=== PATIENT | female | born 1990 | race Caucasian/White ===

== ENCOUNTER 2018-05-07 05:51 | Day surgery (SDC) | payer BC ==
--- NOTE | 2018-05-06 18:36 | Pre-Procedure Note/Attestation ---
Pre-Procedure Note/Attestation Complete Prior to Procedure Planned Procedure: bilateral Procedure Narrative: Tonsillectomy Indirect nasopharyngeal mirror exam Possible adenoidectomy Indications for Procedure Pre-Operative Diagnosis: Chronic recurrent tonsillitis Poss. hypertrophied adenoids. Attestation I attest that I discussed the nature of the procedure; its benefits; risks and complications; and alternatives (and the risks and benefits of such alternatives ), prior to the procedure, with the patient (or the patient's legal clearance representative). I attest that, if there was a reasonable possibility of needing a blood transfusion, the patient (or the patient's legal clearance representative) was given the [facility] standardized written summary, pursuant to the [place] Blood Safety Act ([place] Health and Safety Code # 1645, as amended). I attest that I re-evaluated the patient just prior to the surgery and that there has been no change in the patient's H&P, job # [id number]: Bentley Medina MD May 06, 2018 18:36
--- NOTE | 2018-05-06 18:38 | Brief Operative Note ---
Immediate Post Operative Note Operative Note Chief Complaint: Revurrent tonsillitis Pre-op Diagnosis: Chronic recurrent tonsillitis Poss. hypertrophied adenoids. Procedure: Bilateral tonsillectomy Indirect mirror exam posterior nasopharynx while asleep Post-op Diagnosis: same Post-op Diagnosis: same as pre-op Surgeon: Bentley Medina Loading Unit Operator Crimping: none Additional Surgeons: none Anesthesiologist: Radha STACY Anesthesia: general Specimen: yes Complications: none Condition: stable Fluids: D5LR 500 cc Estimated Blood Loss: volume - 10 cc Drains: none Packing: none Implant(s) used?: No Bentley Medina MD May 06, 2018 18:38
--- NOTE | 2018-05-06 18:39 | Discharge Instructions ---
Discharge Instructions Discharge Instructions Follow up with: Dr. Medina 05/21/18 at 11:15AM Diet: clear liquid, other Resume Normal Activity?: No Activity: light activity Pneumonia Vaccine: pt refused vaccine Influenza Vaccine (May to Oct): pt refused vaccine Return to Work/School on: May 21, 2018 For Surgical Patients May shower: No Contact your physician for: bleeding, pain, tenderness, redness, swelling, yellowish discharge in the op. site For Congestive Heart Failure Reminder Report to your physician any weight gain of 5 pounds or more in one week. Bentley Medina MD May 06, 2018 18:39
--- NOTE | 2018-05-06 20:15 | Pre-op HX & Phy Repo 2 SIG ---
DATE OF ADMISSION: 05/07/2018 INDICATION FOR SURGERY: The patient is a 27-year-old female who has 6 tonsil infections a year for the last 3 years. She had had 2 to 3 a year as a child and was supposed to have her tonsils out at 10 years old, but did not. PAST MEDICAL HISTORY: Otherwise, unremarkable for alcohol, drugs or smoking. She is single. No children. Works as an actor. PAST SURGICAL HISTORY: Breast implants and wisdom teeth. ALLERGIES: No known drug allergies. PHYSICAL EXAMINATION: GENERAL: She is 5 feet 4 inches, 120 pounds. VITAL SIGNS: 120/80 for blood pressure, temperature 98.6 degrees, pulse 72, and respiratory rate 14. HEENT: Head is normocephalic. Lips, neck, and nose all normal. Eyes, PERRLA, EOMI. Cranial nerves II through XII grossly normal. Tonsils, 2.5 plus and cryptic bilaterally. CHEST: Clear to auscultation and percussion. ABDOMEN: Soft and nontender. Normoactive bowel sounds. HEART: Normal S1 and S2. No S3 or S4. No murmur, bruit, gallop, or rub. Please note, I did not do a breast exam nor genitourinary exam, it is not indicated for this surgery and she is followed up regularly by her TORCH STRAIGHTENER. ASSESSMENT: Recurrent tonsillitis, six times a year, which is indication for removal of the tonsils. PLAN: Bilateral tonsillectomy, possible adenoidectomy. Bentley Medina M.D. DR: ESTEBAN JOB#: [id number] CC: BETO
[~2018-05-07] VITALS: Ht 162.6 cm; Wt 54.4 kg
[2018-05-07] VITALS (9 sets, daily range): BP systolic 95–104; BP diastolic 44–64
[2018-05-07] MEDS ORDERED: NKM (06:35)
[2018-05-07] MEDS ORDERED: ceFAZolin sod 1 GM in D5W 55 ML IVPB ONE (07:00)
[2018-05-07] MEDS ORDERED: fentaNYL 100 mcg/2 mL IV ONE (07:17)
[2018-05-07] MEDS ORDERED: EPINEPHrine 1mg/1ml Amp ONE (07:18)
[2018-05-07] MEDS ORDERED: Thrombin 5000 units TOPIC ONE (07:19)
[2018-05-07] MEDS ORDERED: Lidocaine 1% 10mg/ml/Epi 0.005mg/ml 30ml vial INJ ONE (07:19)
[2018-05-07] MEDS ORDERED: Dyna-Hex 2% Top Sol 2oz TOPIC ONE (07:19)
[2018-05-07] MEDS ORDERED: Bupivacaine 0.5% Inj 30 ml vial INJ ONE (07:19)
[2018-05-07] MEDS ORDERED: Succinylcholine 20mg/ml 10ml vial ONE (07:21)
[2018-05-07] MEDS ORDERED: LR 1000ml ONE (07:30)
[2018-05-07] MEDS ORDERED: NS Irrig 1000ml ONE (07:30)
[2018-05-07] MEDS ORDERED: Sterile Water Irrig 1000ml IRRIG ONE (07:30)
[2018-05-07] MEDS ORDERED: Dexamethasone 4mg/ml vial IVP SCH (07:45)
[2018-05-07] MEDS ORDERED: Dexamethasone 4mg/ml vial ONE (07:49)
[2018-05-07] MEDS ORDERED: Lidocaine 1% MPF 10mg/ml 5ml ONE (07:49)
[2018-05-07] MEDS ORDERED: Metoclopramide 10mg/2ml Inj ONE (07:49)
[2018-05-07] MEDS ORDERED: Propofol 200mg/20ml IV ONE (07:49)
[2018-05-07] MEDS ORDERED: ceFAZolin sod 1 GM in D5W 55 ML IV ONE (08:15)
--- NOTE | 2018-05-07 08:37 | Immediate Post-Op Evaluation ---
Immediate Post-Op Evalulation Immediate Post-Op Evalulation Procedure: tonsillectomy bilateral Date of Evaluation: May 07, 2018 Time of Evaluation: 08:36 IV Fluids: 500 Blood Pressure Systolic: 102 Blood Pressure Diastolic: 50 Pulse Rate: 74 Respiratory Rate: 14 O2 Sat by Pulse Oximetry: 100 Temperature (Fahrenheit): 97.4 Pain Score (1-10): 0 Nausea: No Vomiting: No Complications none Patient Status: awake, reacts, patent Hydration Status: adequate Drug: ancef Given Within 1 Hr of Incision: Yes Time Given: 07:35 Radha Montemayor CRNA May 07, 2018 08:37
--- NOTE | 2018-05-07 08:38 | Anethesia Preoperative Eval ---
Anesthesia Pre-op PMH/ROS General Date of Evaluation: May 07, 2018 Time of Evaluation: 07:30 Anesthesiologist: genevieve ASA Score: ASA 2 Mallampati Score Class I : Soft palate, uvula, fauces, pillars visible Class II: Soft palate, uvula, fauces visible Class III: Soft palate, base of uvula visible Class IV: Only hard plate visible Mallampati Classification: Class I Surgeon: grabiel Diagnosis: choronic sinusitis Surgical Procedure: Tonsillectomy B Anesthesia History: none Social History: smoking, current smoker Family History: no anesthesia problems Allergies: Coded Allergies: No Known Allergies (Unverified , 05/06/18) Medications: see eMAR Past Medical History Cardiovascular: Denies: HTN, CAD, LA, valve dz, arrhythmia, other Pulmonary: Reports: other - smoking; Denies: asthma, COPD, BERTO Gastrointestinal/Genitourinary: Denies: GERD, CRI, ESRD, other Neurologic/Psychiatric: Denies: dementia, CVA, depression/anxiety, TIA, other Endocrine: Denies: DM, hypothyroidism, steroids, other HEENT: Denies: cataract (L), cataract (R), glaucoma, NONDALTON (L), NONDALTON (R), other Hematology/Immune: Denies: anemia, DVT, bleeding disorder, other Musculoskeletal/Integumentary: Denies: OA, RA, DJD, DDD, edema, other PSxH Narrative: none Anesthesia Pre-op Phys. Exam Physician Exam Last Vital Signs Date Time Temp Pulse Resp B/P (MAP) Pulse Ox O2 Delivery O2 Flow Rate FiO2 05/07/18 06:41 97.9 51 18 103/64 (77) 98 97.9 05/07/18 06:35 Room Air Constitutional: NAD Neurologic: CN 2-12 intact Cardiovascular: RRR Respiratory: CTA Gastrointestinal: S/NT/ND Airway Exam Mallampati Classification 3 Mallampati Score: Class I MO: full Neck: thick TMD: 2fb ROM: full Dentures: no upper, no lower Anesthesia Pre-op A/P Labs Urine Test Test 05/07/18 06:05 Urine HCG, Qualitative Negative (NEGATIVE) Studies Pre-op Studies: EKG - sr Risk Assessment & Plan Plan: general Status Change Before Surgery: No Pre-Antibiotics Drug: ancef Given Within 1 Hr of Incision: Yes Time Given: 07:40 Tarrillion,Radha Lacey FUR FINISHER TAILOR May 07, 2018 08:38
[2018-05-07] MEDS ORDERED: fentaNYL 100 mcg/2 mL IV PRN (08:45)
[2018-05-07] MEDS ORDERED: Metoclopramide 10mg/2ml Inj IVP PRN (08:45)
[2018-05-07] MEDS ORDERED: Acetaminophen (Non formulary) 100 ML IV ONE (09:00)
--- NOTE | 2018-05-07 09:20 | 48 Hour Post Anesthesia Eval ---
Post Anesthesia Evaluation Procedure: tonsillectomy bilateral Date of Evaluation: May 07, 2018 Time of Evaluation: 09:20 Blood Pressure Systolic: 120 0: 80 Pulse Rate: 70 Respiratory Rate: 14 O2 Sat by Pulse Oximetry: 98 Airway: patent Nausea: No Vomiting: No Hydration Status: adequate Cardiopulmonary Status: stable Mental Status/LOC: patient returned to baseline Post-Anesthesia Complications: none Follow-up care needed: N/A Radha Montemayor CRNA May 07, 2018 09:20
--- NOTE | 2018-05-07 17:15 | Operative Note - Dictated ---
DATE OF OPERATION: 05/07/2018 INDICATION FOR SURGERY: The patient with recurrent tonsillitis at least 6 times a year for the last 3 years per the patient and she was postop now when she was 10. Since that time, she has been having infections 2 to 3 times a year. We are also going to look at the adenoids to see if they are enlarged. PREOPERATIVE DIAGNOSIS: Chronic tonsillitis. POSTOPERATIVE DIAGNOSIS: Chronic tonsillitis. FINDINGS: A 2.5+ cryptic tonsils and there was a pus pocket, which was sent for culture and sensitivity at the bottom of the right tonsil. PROCEDURE: 1. Bilateral tonsillectomy. 2. Indirect mirror exam, posterior nasopharynx. SURGEON: Bentley Medina M.D. TANKROOM WORKER: None. ANESTHESIA: Radha-AIRCRAFT STRUCTURAL DESIGN ENGINEER. PROCEDURE IN DETAIL: The patient is prepped and draped in the usual manner. All agreed as to the procedure and medications to be provided. Initially, a McIvor mouth gag was placed in the mouth in suspension. The patient was under oral endotracheal anesthesia. I then proceeded to inject approximately 8 mL 1% lidocaine and 1000 epinephrine between the two tonsillar beds. I started on the right tonsil dissecting from the anterior superior to posterior inferior direction with electrocautery on both 12 and 14. I did realize, there is a small pus pocket at the bottom of the tonsil on the right-hand side and this was sent for culture and sensitivity separately. The tonsil itself on the right side was sent for permanent fix section. I then did the same procedure on the left tonsil. Tonsillar sponge was placed in either tonsillar bed. I then proceeded to put down the McIvor mouth gag for 1 minute to elucidate any blood vessels that may be stretched and hiding any bleeding. The McIvor mouth gag was then put back up after a minute. Small venous bleeder was cauterized and seemed to be doing well. I then proceeded to inject a total of 4 mL Marcaine, 2 on either tonsillar bed. This is 0.25% with 0% epinephrine. I then again put down the McIvor mouth gag for a minute. I then put it back up, there was no bleeding. I then placed thrombin on the tonsillar bed and suctioned the throat. I then removed the McIvor mouth gag. The patient was extubated about 5 to 10 minutes later. EBL 10 mL. Counts none. Drains none. I saw her in about 15 minutes after she had arrived in the recovery room. There is no bleeding. She seemed to be comfortable. Her parents have been spoken to by the nurse on the phone. They are coming back to the hospital. Bentley Medina M.D. DR: LAUREN JOB#: [id number] CC:
== END 2018-05-07 10:00 | disposition home or self-care (01) ==
LOC: SUR 05:51 → EDBD 07:30 → SUR 10:00
DX: J35.01 Chronic tonsillitis (principal); F17.200 Nicotine dependence, unspecified, uncomplicated
CPT/HCPCS: 42826; 81025; 87070; 87181; 87205; J0171; J0330; J0690; J1100; J2405; J2704; J2765; J3010; J3490; 94003; 94150

== ENCOUNTER 2018-12-26 07:39 | Day surgery (SDC) | payer BC ==
[~2018-12-26] VITALS: Ht 162.6 cm; Wt 54.4 kg
[2018-12-26] VITALS (8 sets, daily range): BP systolic 97–122; BP diastolic 56–86
--- NOTE | 2018-12-26 07:06 | Anethesia Preoperative Eval ---
Anesthesia Pre-op PMH/ROS General Date of Evaluation: December 26, 2018 Time of Evaluation: 07:04 Anesthesiologist: mayo ASA Score: ASA 2 Mallampati Score Class I : Soft palate, uvula, fauces, pillars visible Class II: Soft palate, uvula, fauces visible Class III: Soft palate, base of uvula visible Class IV: Only hard plate visible Mallampati Classification: Class II Surgeon: nasrin Diagnosis: gerd Surgical Procedure: egd Anesthesia History: none Social History: smoking - nonsmoker Family History: no anesthesia problems Allergies: Coded Allergies: No Known Allergies (Unverified , 12/26/18) Medications: see eMAR Patient NPO?: Yes Past Medical History Gastrointestinal/Genitourinary: Reports: GERD Musculoskeletal/Integumentary: Reports: other - dermatitis PSxH Narrative: tonsillectomy, breast implant Anesthesia Pre-op Phys. Exam Physician Exam Constitutional: NAD Neurologic: CN 2-12 intact Cardiovascular: RRR Respiratory: CTA Gastrointestinal: S/NT/ND Airway Exam Mallampati Score: Class II MO: limited Neck: flexible TMD: 2fb ROM: limited Anesthesia Pre-op A/P Labs Labs Test 12/26/18 07:50 Urine HCG, Qualitative Negative (NEGATIVE) Risk Assessment & Plan Assessment: asa2 Plan: mac Status Change Before Surgery: No Pre-Antibiotics Drug: Priscilla Daniel MD December 26, 2018 07:06
[~2018-12-26 07:39] MED LIST: Atropine Inj 1mg/10ml Syr IV PRN; DiphenhydrAMINE 50mg/ml Inj IVP PRN; Midazolam 2mg/2ml Inj IVP PRN; NKM; fentaNYL 100 mcg/2 mL IV PRN
[2018-12-26] MEDS ORDERED: MELATONIN3 MG ORAL (08:13)
[2018-12-26] MEDS ORDERED: VIBRAMYCIN100 MG ORAL (08:14)
[2018-12-26] MEDS ORDERED: Propofol 200mg/20ml IV ONE (09:00)
[2018-12-26] MEDS ORDERED: LR 1000ml ONE (09:00)
[2018-12-26] MEDS ORDERED: Atropine Sulfate 0.4mg/ml inj ONE (09:00)
[2018-12-26] MEDS ORDERED: Lidocaine 1% MPF 10mg/ml 5ml ONE (09:00)
--- NOTE | 2018-12-26 09:19 | Pre-Procedure Note/Attestation ---
Pre-Procedure Note/Attestation Complete Prior to Procedure Planned Procedure: not applicable Procedure Narrative: EGD Indications for Procedure Pre-Operative Diagnosis: GERD,Diarrhea Attestation I attest that I discussed the nature of the procedure; its benefits; risks and complications; and alternatives (and the risks and benefits of such alternatives ), prior to the procedure, with the patient (or the patient's legal sales representative leather goods). I attest that, if there was a reasonable possibility of needing a blood transfusion, the patient (or the patient's legal sales representative leather goods) was given the [facility] standardized written summary, pursuant to the [place] Blood Safety Act ([place] Health and Safety Code # 1645, as amended). I attest that I re-evaluated the patient just prior to the surgery and that there has been no change in the patient's H&P, except as documented below: Tonie Padilla MD December 26, 2018 09:19
--- NOTE | 2018-12-26 09:20 | Short Stay Surgery H&P ---
History of Present Illness History of Present Illness Chief Complaint see H&P HPI Elmira Bryant is a 28 year old female who was admitted on for GERD Patient History Allergies: Coded Allergies: No Known Allergies (Unverified , 12/26/18) Medication History Scheduled Doxycycline Hyclate* (Vibramycin*), 50 MG ORAL DAILY, (Reported) Scheduled PRN Melatonin (Melatonin), 3 MG ORAL BEDTIME PRN for Insomnia, (Reported) Physical Exam Vital Signs Last Vital Signs Date Time Temp Pulse Resp B/P (MAP) Pulse Ox O2 Delivery O2 Flow Rate FiO2 12/26/18 08:22 97.8 50 18 97/56 98 Room Air Labs Laboratory Tests Test 12/26/18 07:50 Urine HCG, Qualitative Negative (NEGATIVE) Plan Attestation Are the patient's medical conditions optimized for surgery? Tonie Padilla MD December 26, 2018 09:20
--- NOTE | 2018-12-26 10:45 | Immediate Post-Op Evaluation ---
Immediate Post-Op Evalulation Immediate Post-Op Evalulation Procedure: egd w/bx Date of Evaluation: December 26, 2018 Time of Evaluation: 09:53 IV Fluids: 475ml lr Blood Products: none Estimated Blood Loss: negligible Blood Pressure Systolic: 107 Blood Pressure Diastolic: 69 Pulse Rate: 62 Respiratory Rate: 18 O2 Sat by Pulse Oximetry: 100 Temperature (Fahrenheit): 97.6 Pain Score (1-10): 0 Nausea: No Vomiting: No Complications none Patient Status: awake, reacts, patent Hydration Status: adequate Drug: Priscilla Daniel MD December 26, 2018 10:45
--- NOTE | 2018-12-26 10:46 | 48 Hour Post Anesthesia Eval ---
Post Anesthesia Evaluation Procedure: egd w/bx Date of Evaluation: December 26, 2018 Time of Evaluation: 09:55 Blood Pressure Systolic: 108 0: 74 Pulse Rate: 61 Respiratory Rate: 18 Temperature (Fahrenheit): 97.6 O2 Sat by Pulse Oximetry: 100 Airway: patent Nausea: No Vomiting: No Pain Intensity: 0 Hydration Status: adequate Cardiopulmonary Status: stable Mental Status/LOC: patient returned to baseline Post-Anesthesia Complications: none Follow-up care needed: N/A Priscilla Hess MD December 26, 2018 10:46
--- NOTE | 2018-12-26 11:11 | Endoscopy Procedure Note ---
Endoscopy Procedure Note General Indication for Procedure: GED Operative Findings/Diagnosis: patulous pylorus Specimen: yes Pt Tolerated Procedure Well: Yes Estimated Blood Loss: none Anesthesia Anesthesiologist: Manny finney Anesthesia: MAC Medications Medication Given: see anesthesia record Inserted Devices Implant(s) used?: No GI Core Measures 50 yrs or older w/o bx or poly: Not Applicable 10yrs. F/U not recommended: Not Applicable If not recommended, why?: Tonie Padilla MD December 26, 2018 11:11
--- NOTE | 2018-12-26 11:12 | Brief Operative Note ---
Immediate Post Operative Note Operative Note Chief Complaint: GERD Pre-op Diagnosis: GERD,Diarrhea Procedure: EGD bx Post-op Diagnosis: Patuolous Pylors Anesthesiologist: zanedr Loya Anesthesia: MAC Specimen: yes Complications: none Condition: stable Fluids: recorded Estimated Blood Loss: none Drains: none Implant(s) used?: No Tonie Padilla MD December 26, 2018 11:12
--- NOTE | 2018-12-26 18:45 | Operative Note - Dictated ---
DATE OF OPERATION: 12/26/2018 PROCEDURE: Upper gastrointestinal endoscopy with biopsy. SURGEON: Tonie Padilla M.D. ANESTHESIA: Please see the separate anesthesiologist notes for details. PRE-ENDOSCOPIC DIAGNOSES: Symptoms of refractory and recurrent gastroesophageal reflux, excessive hunger, and loose stools. DESCRIPTION OF PROCEDURE: The procedure, its risks, indications, alternatives, and possible complications were explained and an informed consent was obtained. The patient was then sedated in the left lateral decubitus position and the endoscope was advanced up to duodenum. The endoscope was then gradually withdrawn and the mucosa was examined carefully. Examination of the upper gastrointestinal mucosa only revealed a patulous pylorus. Random biopsies of the duodenum, stomach, and esophagus were sent to pathology for review. The endoscope was removed and the patient was sent to recovery in good condition. POST-ENDOSCOPIC DIAGNOSES: 1. Patulous pyloric channel. 2. Otherwise normal upper gastrointestinal endoscopy. 3. Status post random biopsies of the duodenum, antrum, lower esophagus, and mid esophagus. RECOMMENDATIONS: 1. Follow up biopsy results. 2. Outpatient followup. Tonie Padilla M.D. DR: BOB JOB#: [id number] CC: Tonie Padilla M.D.; Fax#: [phone] [facility]
== END 2018-12-26 11:00 | disposition home or self-care (01) ==
LOC: GAS 07:39
DX: K21.9 Gastro-esophageal reflux disease without esophagitis (principal); K29.50 Unspecified chronic gastritis without bleeding; Z79.899 Other long term (current) drug therapy; R19.7 Diarrhea, unspecified; Z82.49 Family history of ischemic heart disease and other diseases of the circulatory system; L71.9 Rosacea, unspecified
CPT/HCPCS: 43239; 81025; J0461; J2704; 94003; 94150